=== PATIENT | female | born 1970 | race Caucasian/White ===

== ENCOUNTER 2018-09-30 14:47 | Inpatient (IN) | payer MEDICARE, OTHER ==
[~2018-09-30] VITALS: Ht 157.5 cm; Wt 56.2 kg
[~2018-09-30 14:47] MED LIST: CYCL25CA11 PO; LEVE500T53 PO; PANT40TA25 PO; PRED10 PO; ROSU20TA23 PO; SODI650T PO; VALG450T13 PO; VITA-328 PO; VITAD1000 PO
[2018-09-30 15:00] VITALS: BP 124/43
[2018-09-30] MEDS ORDERED: INSULIN LISPRO 100 UNITS/ML SQ PRN (17:45)
[2018-09-30] MEDS ORDERED: GLUCAGON,HUMAN RECOMBINANT 1 MG VIAL IM PRN (17:45)
[2018-09-30] MEDS ORDERED: DEXTROSE 50%-WATER 25 GM/50 ML SYRINGE IVP PRN (18:00)
[2018-09-30] MEDS: INSULIN LISPRO 100 UNITS/ML SQ PRN ×2 (18:51→21:24)
[2018-09-30] MEDS ORDERED: DOCUSATE SODIUM 100 MG CAPSULE PO PRN (19:30)
[2018-09-30] MEDS ORDERED: SENNA 187 MG TABLET PO PRN (19:30)
[2018-09-30] MEDS ORDERED: LACTULOSE 20 GM/30 ML SOLUTION UDCUP PO PRN (19:30)
[2018-09-30] MEDS ORDERED: OxyCODONE HCL 10 MG IR TABLET PO PRN (19:30)
[2018-09-30 20:06] LABS: GLUCOMETER DEV NAME(LOC) 2WR.1; GLUCOSE,POINT OF CARE 205 MG/DL (70-110)
[2018-09-30] MEDS ORDERED: OMEPRAZOLE 20 MG CAPSULE PO SCH (21:00)
[2018-09-30] MEDS: 0.9% SODIUM CHLORIDE 10 ML SYRINGE IVP SCH ×2 (21:18→23:57)
[2018-09-30] MEDS: INSULIN GLARGINE,HUM.REC.ANLOG 100 UNITS/ML SQ SCH (21:19)
[2018-09-30] MEDS: LevETIRAcetam 500 MG TABLET PO SCH (21:25)
[2018-09-30] MEDS: HEPARIN SODIUM,PORCINE 5,000 UNITS/ML VIAL SQ SCH (21:25)
[2018-09-30] MEDS: CYCLOSPORINE MODIFIED 25 MG PO SCH (21:26)
[2018-09-30] MEDS: TAMSULOSIN HCL 0.4 MG CAPSULE PO SCH (21:26)
[2018-09-30 21:55] LABS: GLUCOMETER DEV NAME(LOC) 2WR.2; GLUCOSE,POINT OF CARE 148 MG/DL (70-110)
[2018-09-30] MEDS: OxyCODONE HCL 5 MG IR TABLET PO PRN (22:46)
[2018-09-30] MEDS: ROSUVASTATIN CALCIUM 20 MG TABLET PO SCH (22:49)
[2018-09-30] MEDS: LATANOPROST 0.005% 2.5 ML OPHTHALMIC SOLUTION OU SCH (23:00)
[2018-09-30] MEDS: BRIMONIDINE TARTRATE 0.2% 5 ML OPHTHALMIC SOLUTION OU SCH (23:00)
[2018-09-30 23:50] VITALS: BP 106/60
[2018-10-01 06:47] LABS: GLUCOMETER DEV NAME(LOC) 2WR.2; GLUCOSE,POINT OF CARE 92 MG/DL (70-110)
[2018-10-01 06:58] LABS: BASOPHILS % (AUTO) 1.1 % (0.0-2.0); EOSINOPHILS % (AUTO) 1.7 % (1.0-6.0); HEMATOCRIT 33.9 % (36-46); HEMOGLOBIN 10.7 g/dL (12.0-16.0); LYMPHOCYTES # (AUTO) 0.8 K/uL (1.0-4.8); LYMPHOCYTES % (AUTO) 6.8 % (22.0-44.0); MEAN CORPUSCULAR HEMOGLOBIN 33.9 pg (26.0-34.0); MEAN CORPUSCULAR HGB CONC 31.5 G/dL (31.0-37.0); MEAN CORPUSCULAR VOLUME 108 fL (80-100); MONOCYTES # (AUTO) 1.3 K/uL (0.1-1.0); MONOCYTES % (AUTO) 11.8 % (2.0-9.0); NEUTROPHILS # (AUTO) 8.7 K/uL (1.8-7.7); NEUTROPHILS % (AUTO) 78.6 % (40.0-70.0); PLATELET COUNT (AUTO) 215 K/uL (150-450); RED BLOOD CELL COUNT(AUTO) 3.15 MIL/uL (4.00-5.20); RED CELL DISTRIBUTION WIDTH 16.6 % (11.5-14.5)
[2018-10-01 07:13] LABS: ALBUMIN 2.2 g/dL (3.4-5.0); BILIRUBIN,TOTAL 0.4 mg/dL (0.1-1.0); CALCIUM, TOTAL 9.5 mg/dL (8.8-10.5); CREATININE 3.95 mg/dL (0.60-1.30); POTASSIUM 4.3 mmol/L (3.5-5.1); TOTAL PROTEIN, SERUM 5.4 g/dL (6.4-8.2)
[2018-10-01 07:30] VITALS: BP 101/70
[2018-10-01] MEDS: PANTOPRAZOLE SODIUM 40 MG DR TABLET PO SCH (08:33)
[2018-10-01] MEDS: CYCLOSPORINE MODIFIED 25 MG PO SCH ×2 (08:33→21:03)
[2018-10-01] MEDS: CHOLECALCIFEROL (VIT D3) 1,000 UNITS TABLET PO SCH (08:33)
[2018-10-01] MEDS: PredniSONE 10 MG TABLET PO SCH (08:33)
[2018-10-01] MEDS: BUMETANIDE 1 MG TABLET PO SCH (08:33)
[2018-10-01] MEDS: 0.9% SODIUM CHLORIDE 10 ML SYRINGE IVP SCH ×3 (08:34→23:04)
[2018-10-01] MEDS: BRIMONIDINE TARTRATE 0.2% 5 ML OPHTHALMIC SOLUTION OU SCH ×2 (08:35→21:11)
[2018-10-01] MEDS: LevETIRAcetam 500 MG TABLET PO SCH ×2 (08:35→21:04)
[2018-10-01] MEDS: VITAMIN B COMP/VIT C/FOLIC ACID CAPSULE PO SCH (08:37)
[2018-10-01] MEDS: HEPARIN SODIUM,PORCINE 5,000 UNITS/ML VIAL SQ SCH ×2 (08:37→21:04)
[2018-10-01] MEDS: OxyCODONE HCL 5 MG IR TABLET PO PRN (08:50)
[2018-10-01 12:26] LABS: GLUCOMETER DEV NAME(LOC) 2WR.1; GLUCOSE,POINT OF CARE 203 MG/DL (70-110)
[2018-10-01] MEDS: INSULIN LISPRO 100 UNITS/ML SQ PRN ×3 (12:43→21:07)
[2018-10-01 15:00] VITALS: BP 129/51
[2018-10-01 18:26] LABS: GLUCOMETER DEV NAME(LOC) 2WR.2; GLUCOSE,POINT OF CARE 166 MG/DL (70-110)
[2018-10-01] MEDS: TAMSULOSIN HCL 0.4 MG CAPSULE PO SCH (21:04)
[2018-10-01] MEDS: ROSUVASTATIN CALCIUM 20 MG TABLET PO SCH ×2 (21:04→21:54)
[2018-10-01] MEDS: INSULIN GLARGINE,HUM.REC.ANLOG 100 UNITS/ML SQ SCH (21:06)
[2018-10-01] MEDS: LATANOPROST 0.005% 2.5 ML OPHTHALMIC SOLUTION OU SCH (21:11)
[2018-10-01 22:15] LABS: GLUCOMETER DEV NAME(LOC) 2WR.2; GLUCOSE,POINT OF CARE 190 MG/DL (70-110)
[2018-10-02] VITALS: BP 121/78
[2018-10-02 06:26] LABS: GLUCOMETER DEV NAME(LOC) 2WR.1; GLUCOSE,POINT OF CARE 112 MG/DL (70-110)
[2018-10-02 07:47] VITALS: BP 137/75
[2018-10-02] MEDS: 0.9% SODIUM CHLORIDE 10 ML SYRINGE IVP SCH ×3 (09:03→22:51)
[2018-10-02] MEDS: PANTOPRAZOLE SODIUM 40 MG DR TABLET PO SCH (09:15)
[2018-10-02] MEDS: LevETIRAcetam 500 MG TABLET PO SCH ×2 (09:15→20:19)
[2018-10-02] MEDS: VITAMIN B COMP/VIT C/FOLIC ACID CAPSULE PO SCH (09:16)
[2018-10-02] MEDS: CHOLECALCIFEROL (VIT D3) 1,000 UNITS TABLET PO SCH (09:16)
[2018-10-02] MEDS: BUMETANIDE 1 MG TABLET PO SCH (09:16)
[2018-10-02] MEDS: PredniSONE 10 MG TABLET PO SCH (09:16)
[2018-10-02] MEDS: HEPARIN SODIUM,PORCINE 5,000 UNITS/ML VIAL SQ SCH ×2 (09:16→20:19)
[2018-10-02] MEDS: CYCLOSPORINE MODIFIED 25 MG PO SCH ×2 (09:17→20:19)
[2018-10-02] MEDS: BRIMONIDINE TARTRATE 0.2% 5 ML OPHTHALMIC SOLUTION OU SCH ×2 (09:17→20:18)
[2018-10-02] MEDS ORDERED: SODIUM CL IRRIG SOLN BOTTLE 250 ML IRRIG ONE (11:59)
[2018-10-02 12:26] LABS: GLUCOMETER DEV NAME(LOC) 2WR.1; GLUCOSE,POINT OF CARE 171 MG/DL (70-110)
[2018-10-02] MEDS: INSULIN LISPRO 100 UNITS/ML SQ PRN ×3 (12:55→20:22)
[2018-10-02 18:00] LABS: GLUCOMETER DEV NAME(LOC) 2WR.2; GLUCOSE,POINT OF CARE 282 MG/DL (70-110)
[2018-10-02] MEDS: LATANOPROST 0.005% 2.5 ML OPHTHALMIC SOLUTION OU SCH (20:18)
[2018-10-02] MEDS: TAMSULOSIN HCL 0.4 MG CAPSULE PO SCH (20:19)
[2018-10-02] MEDS: ROSUVASTATIN CALCIUM 20 MG TABLET PO SCH (20:19)
[2018-10-02] MEDS: INSULIN GLARGINE,HUM.REC.ANLOG 100 UNITS/ML SQ SCH (20:20)
[2018-10-02 21:21] LABS: GLUCOMETER DEV NAME(LOC) 2WR.1; GLUCOSE,POINT OF CARE 267 MG/DL (70-110)
[2018-10-03] VITALS: BP 119/67
[2018-10-03 06:36] LABS: GLUCOMETER DEV NAME(LOC) 2WR.1; GLUCOSE,POINT OF CARE 138 MG/DL (70-110)
[2018-10-03 07:44] VITALS: BP 110/74
[2018-10-03] MEDS: 0.9% SODIUM CHLORIDE 10 ML SYRINGE IVP SCH ×2 (08:00→09:06)
[2018-10-03] MEDS: LevETIRAcetam 500 MG TABLET PO SCH ×2 (09:04→21:55)
[2018-10-03] MEDS: VITAMIN B COMP/VIT C/FOLIC ACID CAPSULE PO SCH (09:04)
[2018-10-03] MEDS: BUMETANIDE 1 MG TABLET PO SCH (09:04)
[2018-10-03] MEDS: CHOLECALCIFEROL (VIT D3) 1,000 UNITS TABLET PO SCH (09:04)
[2018-10-03] MEDS: HEPARIN SODIUM,PORCINE 5,000 UNITS/ML VIAL SQ SCH ×2 (09:04→21:55)
[2018-10-03] MEDS: PANTOPRAZOLE SODIUM 40 MG DR TABLET PO SCH (09:04)
[2018-10-03] MEDS: PredniSONE 10 MG TABLET PO SCH (09:05)
[2018-10-03] MEDS: CYCLOSPORINE MODIFIED 25 MG PO SCH ×2 (09:05→21:54)
[2018-10-03] MEDS: BRIMONIDINE TARTRATE 0.2% 5 ML OPHTHALMIC SOLUTION OU SCH ×2 (09:05→21:55)
[2018-10-03 10:14] LABS: BASOPHILS % (AUTO) 0.5 % (0.0-2.0); EOSINOPHILS % (AUTO) 1.2 % (1.0-6.0); HEMATOCRIT 36.9 % (36-46); HEMOGLOBIN 11.5 g/dL (12.0-16.0); LYMPHOCYTES # (AUTO) 0.8 K/uL (1.0-4.8); LYMPHOCYTES % (AUTO) 7.9 % (22.0-44.0); MEAN CORPUSCULAR HEMOGLOBIN 33.9 pg (26.0-34.0); MEAN CORPUSCULAR HGB CONC 31.2 G/dL (31.0-37.0); MEAN CORPUSCULAR VOLUME 109 fL (80-100); MONOCYTES # (AUTO) 1.3 K/uL (0.1-1.0); NEUTROPHILS # (AUTO) 8.3 K/uL (1.8-7.7); NEUTROPHILS % (AUTO) 78.4 % (40.0-70.0); PLATELET COUNT (AUTO) 220 K/uL (150-450); RED CELL DISTRIBUTION WIDTH 17.1 % (11.5-14.5)
[2018-10-03 10:34] LABS: ALBUMIN 2.6 g/dL (3.4-5.0); BILIRUBIN,TOTAL 0.4 mg/dL (0.1-1.0); CREATININE 4.12 mg/dL (0.60-1.30)
[2018-10-03] MEDS: INSULIN LISPRO 100 UNITS/ML SQ PRN ×3 (12:39→22:00)
[2018-10-03 13:30] LABS: GLUCOMETER DEV NAME(LOC) 2WR.2; GLUCOSE,POINT OF CARE 183 MG/DL (70-110)
[2018-10-03 17:56] LABS: GLUCOMETER DEV NAME(LOC) 2WR.1; GLUCOSE,POINT OF CARE 282 MG/DL (70-110)
[2018-10-03 18:17] LABS: APPEARANCE,URINE CLOUDY (CLEAR); BILIRUBIN,URINE NEGATIVE (NEGATIVE); GLUCOSE, URINE (UA) 250 mg/dL (NEGATIVE); KETONES,URINE NEGATIVE (NEGATIVE); LEUKOCYTE ESTERASE ,URINE MODERATE (NEGATIVE); NITRATE,URINE NEGATIVE (NEGATIVE); OCCULT BLOOD,URINE TRACE (NEGATIVE); PH,URINE 6.5 (5.0-8.0); PROTEIN,URINE SEE CONFIRM (NEGATIVE); UROBILINOGEN,URINE 0.2 mg/dL (<=1.0)
[2018-10-03 18:19] VITALS: BP 115/74
[2018-10-03 18:34] LABS: SULFOSALICYLIC ACID,URINE 4+ (Negative)
[2018-10-03 18:35] LABS: RBC,URINE 0-2 /HPF (0-2); WBC,URINE 26-50 /HPF (0-5)
[2018-10-03 18:37] LABS: BACTERIA,URINE Rare /HPF (None Seen); SQUAMOUS EPITHELIAL CELL,UR Few /LPF (None Seen); YEAST,URINE Few /HPF (None Seen)
[2018-10-03] MEDS: LATANOPROST 0.005% 2.5 ML OPHTHALMIC SOLUTION OU SCH (21:55)
[2018-10-03] MEDS: TAMSULOSIN HCL 0.4 MG CAPSULE PO SCH (21:55)
[2018-10-03] MEDS: ROSUVASTATIN CALCIUM 20 MG TABLET PO SCH (21:55)
[2018-10-03] MEDS: INSULIN GLARGINE,HUM.REC.ANLOG 100 UNITS/ML SQ SCH (21:59)
[2018-10-03 22:21] LABS: GLUCOMETER DEV NAME(LOC) 2WR.2; GLUCOSE,POINT OF CARE 362 MG/DL (70-110)
[2018-10-04 03:30] VITALS: BP 156/59
[2018-10-04 04:30] VITALS: BP 111/73
[2018-10-04 06:41] LABS: GLUCOMETER DEV NAME(LOC) 2WR.1; GLUCOSE,POINT OF CARE 142 MG/DL (70-110)
[2018-10-04 07:55] VITALS: BP 148/60
[2018-10-04] MEDS: BRIMONIDINE TARTRATE 0.2% 5 ML OPHTHALMIC SOLUTION OU SCH ×2 (08:43→21:17)
[2018-10-04] MEDS: ACETAMINOPHEN 325 MG TABLET PO PRN ×2 (08:44→21:23)
[2018-10-04] MEDS: CYCLOSPORINE MODIFIED 25 MG PO SCH ×2 (08:44→21:19)
[2018-10-04] MEDS: BUMETANIDE 1 MG TABLET PO SCH (08:44)
[2018-10-04] MEDS: CHOLECALCIFEROL (VIT D3) 1,000 UNITS TABLET PO SCH (08:44)
[2018-10-04] MEDS: PANTOPRAZOLE SODIUM 40 MG DR TABLET PO SCH (08:45)
[2018-10-04] MEDS: HEPARIN SODIUM,PORCINE 5,000 UNITS/ML VIAL SQ SCH ×2 (08:45→21:18)
[2018-10-04] MEDS: VITAMIN B COMP/VIT C/FOLIC ACID CAPSULE PO SCH (08:45)
[2018-10-04] MEDS: PredniSONE 10 MG TABLET PO SCH (08:45)
[2018-10-04] MEDS: LevETIRAcetam 500 MG TABLET PO SCH ×2 (08:45→21:18)
[2018-10-04] MEDS: OxyCODONE HCL 5 MG IR TABLET PO PRN (11:44)
[2018-10-04 12:55] LABS: GLUCOMETER DEV NAME(LOC) 2WR.2; GLUCOSE,POINT OF CARE 169 MG/DL (70-110)
[2018-10-04] MEDS: INSULIN LISPRO 100 UNITS/ML SQ PRN ×2 (13:01→21:31)
[2018-10-04 15:40] VITALS: BP 128/61
[2018-10-04 18:35] LABS: GLUCOMETER DEV NAME(LOC) 2WR.1; GLUCOSE,POINT OF CARE 218 MG/DL (70-110)
[2018-10-04] MEDS: LATANOPROST 0.005% 2.5 ML OPHTHALMIC SOLUTION OU SCH (21:17)
[2018-10-04] MEDS: ROSUVASTATIN CALCIUM 20 MG TABLET PO SCH (21:19)
[2018-10-04] MEDS: TAMSULOSIN HCL 0.4 MG CAPSULE PO SCH (21:19)
[2018-10-04] MEDS: INSULIN GLARGINE,HUM.REC.ANLOG 100 UNITS/ML SQ SCH (21:31)
[2018-10-04 22:06] LABS: GLUCOMETER DEV NAME(LOC) 2WR.1; GLUCOSE,POINT OF CARE 319 MG/DL (70-110)
[2018-10-05] MEDS ORDERED: INSU200I SQ ×2 (00:12)
[2018-10-05] MEDS ORDERED: INSLAN SQ (00:12)
[2018-10-05 05:00] VITALS: BP 133/100
[2018-10-05 06:31] LABS: GLUCOMETER DEV NAME(LOC) 2WR.2; GLUCOSE,POINT OF CARE 143 MG/DL (70-110)
[2018-10-05 07:27] LABS: CALCIUM, TOTAL 9.6 mg/dL (8.8-10.5); CREATININE 4.18 mg/dL (0.60-1.30); POTASSIUM 4.4 mmol/L (3.5-5.1)
[2018-10-05 08:00] VITALS: BP 98/58
[2018-10-05] MEDS ORDERED: EPOETIN ALFA 10,000 UNITS/ML VIAL SQ SCH (09:00)
[2018-10-05 09:20] VITALS: BP 111/78
[2018-10-05] MEDS: PANTOPRAZOLE SODIUM 40 MG DR TABLET PO SCH (09:22)
[2018-10-05] MEDS: VITAMIN B COMP/VIT C/FOLIC ACID CAPSULE PO SCH (09:22)
[2018-10-05] MEDS: LevETIRAcetam 500 MG TABLET PO SCH ×2 (09:22→20:24)
[2018-10-05] MEDS: HEPARIN SODIUM,PORCINE 5,000 UNITS/ML VIAL SQ SCH ×2 (09:22→20:26)
[2018-10-05] MEDS: CHOLECALCIFEROL (VIT D3) 1,000 UNITS TABLET PO SCH (09:22)
[2018-10-05] MEDS: CYCLOSPORINE MODIFIED 25 MG PO SCH ×2 (09:22→20:23)
[2018-10-05] MEDS: BRIMONIDINE TARTRATE 0.2% 5 ML OPHTHALMIC SOLUTION OU SCH ×2 (09:22→20:25)
[2018-10-05] MEDS: PredniSONE 10 MG TABLET PO SCH (09:23)
[2018-10-05] MEDS: INSULIN LISPRO 100 UNITS/ML SQ PRN ×4 (09:26→20:27)
[2018-10-05] MEDS: BUMETANIDE 1 MG TABLET PO SCH (09:31)
[2018-10-05 12:36] LABS: GLUCOMETER DEV NAME(LOC) 2WR.2; GLUCOSE,POINT OF CARE 153 MG/DL (70-110)
[2018-10-05 16:00] VITALS: BP 105/61
[2018-10-05 16:50] LABS: GLUCOMETER DEV NAME(LOC) 2WR.2; GLUCOSE,POINT OF CARE 222 MG/DL (70-110)
[2018-10-05] MEDS: ROSUVASTATIN CALCIUM 20 MG TABLET PO SCH (20:23)
[2018-10-05] MEDS: TAMSULOSIN HCL 0.4 MG CAPSULE PO SCH (20:23)
[2018-10-05] MEDS: LATANOPROST 0.005% 2.5 ML OPHTHALMIC SOLUTION OU SCH (20:24)
[2018-10-05] MEDS: INSULIN GLARGINE,HUM.REC.ANLOG 100 UNITS/ML SQ SCH (20:27)
[2018-10-05 22:06] LABS: GLUCOMETER DEV NAME(LOC) 2WR.2; GLUCOSE,POINT OF CARE 272 MG/DL (70-110)
[2018-10-06 00:36] VITALS: BP 126/93
[2018-10-06 06:41] LABS: GLUCOMETER DEV NAME(LOC) 2WR.2; GLUCOSE,POINT OF CARE 136 MG/DL (70-110)
[2018-10-06] MEDS: CYCLOSPORINE MODIFIED 25 MG PO SCH ×2 (08:47→21:30)
[2018-10-06] MEDS: CHOLECALCIFEROL (VIT D3) 1,000 UNITS TABLET PO SCH (08:48)
[2018-10-06] MEDS: BRIMONIDINE TARTRATE 0.2% 5 ML OPHTHALMIC SOLUTION OU SCH ×2 (08:48→21:30)
[2018-10-06] MEDS: HEPARIN SODIUM,PORCINE 5,000 UNITS/ML VIAL SQ SCH ×2 (08:48→21:30)
[2018-10-06] MEDS: PredniSONE 10 MG TABLET PO SCH (08:48)
[2018-10-06] MEDS: BUMETANIDE 1 MG TABLET PO SCH (08:48)
[2018-10-06] MEDS: PANTOPRAZOLE SODIUM 40 MG DR TABLET PO SCH (08:48)
[2018-10-06] MEDS: VITAMIN B COMP/VIT C/FOLIC ACID CAPSULE PO SCH (08:48)
[2018-10-06] MEDS: LevETIRAcetam 500 MG TABLET PO SCH ×2 (08:48→21:30)
[2018-10-06 10:08] VITALS: BP 135/71
[2018-10-06] MEDS: INSULIN LISPRO 100 UNITS/ML SQ PRN ×3 (13:28→21:41)
[2018-10-06] MEDS: ACETAMINOPHEN 325 MG TABLET PO PRN (13:29)
[2018-10-06 13:35] LABS: GLUCOMETER DEV NAME(LOC) 2WR.2; GLUCOSE,POINT OF CARE 226 MG/DL (70-110)
[2018-10-06] MEDS: CHLORHEXIDINE GLUCONATE 4% 118 ML TOPICAL LIQUID TP SCH (17:51)
[2018-10-06] MEDS: BACITRACIN 28.4 GM OINTMENT TP SCH (17:52)
[2018-10-06 18:06] LABS: GLUCOMETER DEV NAME(LOC) 2WR.1B; GLUCOSE,POINT OF CARE 246 MG/DL (70-110)
[2018-10-06] MEDS: ROSUVASTATIN CALCIUM 20 MG TABLET PO SCH (21:29)
[2018-10-06] MEDS: TAMSULOSIN HCL 0.4 MG CAPSULE PO SCH (21:30)
[2018-10-06] MEDS: LATANOPROST 0.005% 2.5 ML OPHTHALMIC SOLUTION OU SCH (21:30)
[2018-10-06] MEDS: INSULIN GLARGINE,HUM.REC.ANLOG 100 UNITS/ML SQ SCH (21:40)
[2018-10-06 22:00] VITALS: BP 132/64
[2018-10-06 23:35] LABS: GLUCOMETER DEV NAME(LOC) 2WR.2; GLUCOSE,POINT OF CARE 270 MG/DL (70-110)
[2018-10-06 23:46] VITALS: BP 145/59
[2018-10-07] MEDS: OxyCODONE HCL 5 MG IR TABLET PO PRN (04:03)
[2018-10-07 05:51] LABS: GLUCOMETER DEV NAME(LOC) 2WR.2; GLUCOSE,POINT OF CARE 213 MG/DL (70-110)
[2018-10-07 07:35] VITALS: BP 127/99
[2018-10-07] MEDS: VITAMIN B COMP/VIT C/FOLIC ACID CAPSULE PO SCH (08:19)
[2018-10-07] MEDS: CYCLOSPORINE MODIFIED 25 MG PO SCH ×2 (08:19→21:46)
[2018-10-07] MEDS: CHOLECALCIFEROL (VIT D3) 1,000 UNITS TABLET PO SCH (08:19)
[2018-10-07] MEDS: PANTOPRAZOLE SODIUM 40 MG DR TABLET PO SCH (08:20)
[2018-10-07] MEDS: HEPARIN SODIUM,PORCINE 5,000 UNITS/ML VIAL SQ SCH ×2 (08:20→21:46)
[2018-10-07] MEDS: BRIMONIDINE TARTRATE 0.2% 5 ML OPHTHALMIC SOLUTION OU SCH ×2 (08:20→21:46)
[2018-10-07] MEDS: PredniSONE 10 MG TABLET PO SCH (08:20)
[2018-10-07] MEDS: LevETIRAcetam 500 MG TABLET PO SCH ×2 (08:20→21:46)
[2018-10-07] MEDS: BUMETANIDE 1 MG TABLET PO SCH (08:21)
[2018-10-07] MEDS: INSULIN LISPRO 100 UNITS/ML SQ PRN ×4 (08:38→21:53)
[2018-10-07] MEDS: BACITRACIN 28.4 GM OINTMENT TP SCH (08:49)
[2018-10-07 12:24] LABS: APPEARANCE,URINE CLOUDY (CLEAR); BILIRUBIN,URINE NEGATIVE (NEGATIVE); GLUCOSE, URINE (UA) 500 mg/dL (NEGATIVE); KETONES,URINE NEGATIVE (NEGATIVE); LEUKOCYTE ESTERASE ,URINE LARGE (NEGATIVE); NITRATE,URINE NEGATIVE (NEGATIVE); OCCULT BLOOD,URINE MODERATE (NEGATIVE); PH,URINE 5.5 (5.0-8.0); PROTEIN,URINE SEE CONFIRM (NEGATIVE); UROBILINOGEN,URINE 0.2 mg/dL (<=1.0)
[2018-10-07 12:44] LABS: SULFOSALICYLIC ACID,URINE 3+ (Negative)
[2018-10-07 12:45] LABS: RBC,URINE 0-2 /HPF (0-2); WBC,URINE 51-100 /HPF (0-5)
[2018-10-07 12:46] LABS: BACTERIA,URINE Many /HPF (None Seen); SQUAMOUS EPITHELIAL CELL,UR Few /LPF (None Seen)
[2018-10-07] MEDS: ACETAMINOPHEN 325 MG TABLET PO PRN (14:07)
[2018-10-07 14:35] LABS: GLUCOMETER DEV NAME(LOC) 2WR.2; GLUCOSE,POINT OF CARE 173 MG/DL (70-110)
[2018-10-07 15:05] VITALS: BP 133/90
[2018-10-07 18:10] LABS: GLUCOMETER DEV NAME(LOC) 2WR.2; GLUCOSE,POINT OF CARE 347 MG/DL (70-110)
[2018-10-07] MEDS: TAMSULOSIN HCL 0.4 MG CAPSULE PO SCH (21:46)
[2018-10-07] MEDS: LATANOPROST 0.005% 2.5 ML OPHTHALMIC SOLUTION OU SCH (21:46)
[2018-10-07] MEDS: ROSUVASTATIN CALCIUM 20 MG TABLET PO SCH (21:46)
[2018-10-07] MEDS: INSULIN GLARGINE,HUM.REC.ANLOG 100 UNITS/ML SQ SCH (21:51)
[2018-10-07 23:19] LABS: GLUCOMETER DEV NAME(LOC) 2WR.2; GLUCOSE,POINT OF CARE 251 MG/DL (70-110)
[2018-10-08 00:34] VITALS: BP 113/63
[2018-10-08 01:46] LABS: CYCLOSPORINE A 122 ng/mL (100-400)
[2018-10-08 06:36] LABS: GLUCOMETER DEV NAME(LOC) 2WR.2; GLUCOSE,POINT OF CARE 180 MG/DL (70-110)
[2018-10-08 08:10] VITALS: BP 123/67
[2018-10-08] MEDS: CHLORHEXIDINE GLUCONATE 4% 118 ML TOPICAL LIQUID TP SCH (08:51)
[2018-10-08] MEDS: BUMETANIDE 1 MG TABLET PO SCH (08:51)
[2018-10-08] MEDS: CYCLOSPORINE MODIFIED 25 MG PO SCH ×2 (08:51→21:11)
[2018-10-08] MEDS: ACETAMINOPHEN 325 MG TABLET PO PRN (08:51)
[2018-10-08] MEDS: VITAMIN B COMP/VIT C/FOLIC ACID CAPSULE PO SCH (08:51)
[2018-10-08] MEDS: PANTOPRAZOLE SODIUM 40 MG DR TABLET PO SCH (08:51)
[2018-10-08] MEDS: BACITRACIN 28.4 GM OINTMENT TP SCH (08:52)
[2018-10-08] MEDS: HEPARIN SODIUM,PORCINE 5,000 UNITS/ML VIAL SQ SCH ×2 (08:52→21:12)
[2018-10-08] MEDS: PredniSONE 10 MG TABLET PO SCH (08:52)
[2018-10-08] MEDS: BRIMONIDINE TARTRATE 0.2% 5 ML OPHTHALMIC SOLUTION OU SCH ×2 (08:55→21:12)
[2018-10-08] MEDS: CHOLECALCIFEROL (VIT D3) 1,000 UNITS TABLET PO SCH (08:55)
[2018-10-08] MEDS: LevETIRAcetam 500 MG TABLET PO SCH ×2 (08:55→21:12)
[2018-10-08 09:16] LABS: BASOPHILS % (AUTO) 1.1 % (0.0-2.0); EOSINOPHILS % (AUTO) 1.8 % (1.0-6.0); HEMATOCRIT 38.7 % (36-46); HEMOGLOBIN 12.2 g/dL (12.0-16.0); LYMPHOCYTES # (AUTO) 0.7 K/uL (1.0-4.8); MEAN CORPUSCULAR HEMOGLOBIN 33.4 pg (26.0-34.0); MEAN CORPUSCULAR HGB CONC 31.6 G/dL (31.0-37.0); MEAN CORPUSCULAR VOLUME 106 fL (80-100); MONOCYTES # (AUTO) 1.1 K/uL (0.1-1.0); MONOCYTES % (AUTO) 9.2 % (2.0-9.0); NEUTROPHILS % (AUTO) 81.9 % (40.0-70.0); PLATELET COUNT (AUTO) 195 K/uL (150-450); RED BLOOD CELL COUNT(AUTO) 3.66 MIL/uL (4.00-5.20); RED CELL DISTRIBUTION WIDTH 16.7 % (11.5-14.5)
[2018-10-08 09:36] LABS: ALBUMIN 2.9 g/dL (3.4-5.0); BILIRUBIN,TOTAL 0.3 mg/dL (0.1-1.0); CALCIUM, TOTAL 10.1 mg/dL (8.8-10.5); CREATININE 3.66 mg/dL (0.60-1.30); TOTAL PROTEIN, SERUM 6.4 g/dL (6.4-8.2)
[2018-10-08] MEDS: INSULIN LISPRO 100 UNITS/ML SQ PRN ×3 (10:03→21:20)
[2018-10-08 12:46] LABS: GLUCOMETER DEV NAME(LOC) 2WR.2; GLUCOSE,POINT OF CARE 248 MG/DL (70-110)
[2018-10-08] MEDS: ESCITALOPRAM OXALATE 10 MG TABLET PO SCH (13:15)
[2018-10-08] MEDS: INSULIN LISPRO 100 UNITS/ML SQ SCH ×2 (13:23→16:55)
[2018-10-08 17:00] VITALS: BP 111/51
[2018-10-08 17:35] LABS: GLUCOMETER DEV NAME(LOC) 2WR.2; GLUCOSE,POINT OF CARE 271 MG/DL (70-110)
[2018-10-08] MEDS: LATANOPROST 0.005% 2.5 ML OPHTHALMIC SOLUTION OU SCH (21:12)
[2018-10-08] MEDS: LORazepam 0.5 MG TABLET PO SCH (21:12)
[2018-10-08] MEDS: ROSUVASTATIN CALCIUM 20 MG TABLET PO SCH (21:12)
[2018-10-08] MEDS: TAMSULOSIN HCL 0.4 MG CAPSULE PO SCH (21:12)
[2018-10-08] MEDS: INSULIN GLARGINE,HUM.REC.ANLOG 100 UNITS/ML SQ SCH (21:19)
[2018-10-08 21:45] LABS: GLUCOMETER DEV NAME(LOC) 2WR.2; GLUCOSE,POINT OF CARE 253 MG/DL (70-110)
[2018-10-09 01:00] VITALS: BP 106/70
[2018-10-09 06:45] LABS: GLUCOMETER DEV NAME(LOC) 2WR.2; GLUCOSE,POINT OF CARE 193 MG/DL (70-110)
[2018-10-09] MEDS: INSULIN LISPRO 100 UNITS/ML SQ SCH ×4 (07:00→17:35)
[2018-10-09 07:30] VITALS: BP 97/55
[2018-10-09] MEDS: CYCLOSPORINE MODIFIED 25 MG PO SCH ×2 (09:18→20:52)
[2018-10-09] MEDS: BACITRACIN 28.4 GM OINTMENT TP SCH (09:18)
[2018-10-09] MEDS: PANTOPRAZOLE SODIUM 40 MG DR TABLET PO SCH (09:18)
[2018-10-09] MEDS: VITAMIN B COMP/VIT C/FOLIC ACID CAPSULE PO SCH (09:18)
[2018-10-09] MEDS: ESCITALOPRAM OXALATE 10 MG TABLET PO SCH (09:18)
[2018-10-09] MEDS: CHLORHEXIDINE GLUCONATE 4% 118 ML TOPICAL LIQUID TP SCH (09:19)
[2018-10-09] MEDS: LevETIRAcetam 500 MG TABLET PO SCH ×2 (09:19→20:52)
[2018-10-09] MEDS: PredniSONE 10 MG TABLET PO SCH (09:19)
[2018-10-09] MEDS: BUMETANIDE 1 MG TABLET PO SCH (09:19)
[2018-10-09] MEDS: CHOLECALCIFEROL (VIT D3) 1,000 UNITS TABLET PO SCH (09:19)
[2018-10-09] MEDS: BRIMONIDINE TARTRATE 0.2% 5 ML OPHTHALMIC SOLUTION OU SCH ×2 (09:19→20:52)
[2018-10-09] MEDS: HEPARIN SODIUM,PORCINE 5,000 UNITS/ML VIAL SQ SCH ×2 (09:19→20:53)
[2018-10-09] MEDS ORDERED: ONDANSETRON HCL 4 MG TABLET PO PRN (09:45)
[2018-10-09] MEDS: INSULIN LISPRO 100 UNITS/ML SQ PRN ×3 (12:38→21:14)
[2018-10-09 13:10] LABS: GLUCOMETER DEV NAME(LOC) 2WR.2; GLUCOSE,POINT OF CARE 266 MG/DL (70-110)
[2018-10-09 15:51] VITALS: BP 108/86
[2018-10-09 16:50] LABS: GLUCOMETER DEV NAME(LOC) 2WR.2; GLUCOSE,POINT OF CARE 130 MG/DL (70-110)
[2018-10-09] MEDS: LORazepam 0.5 MG TABLET PO SCH (20:52)
[2018-10-09] MEDS: CIPROFLOXACIN HCL 250 MG TABLET PO SCH (20:52)
[2018-10-09] MEDS: MELATONIN 3 MG TABLET PO PRN (20:52)
[2018-10-09] MEDS: TAMSULOSIN HCL 0.4 MG CAPSULE PO SCH (20:52)
[2018-10-09] MEDS: OxyCODONE HCL 5 MG IR TABLET PO PRN (20:52)
[2018-10-09] MEDS: ROSUVASTATIN CALCIUM 20 MG TABLET PO SCH (20:52)
[2018-10-09] MEDS: LATANOPROST 0.005% 2.5 ML OPHTHALMIC SOLUTION OU SCH (20:53)
[2018-10-09] MEDS: VANCOMYCIN HCL 125 MG/2.5 ML SOLUTION ORAL.SYG PO SCH (21:02)
[2018-10-09] MEDS: INSULIN GLARGINE,HUM.REC.ANLOG 100 UNITS/ML SQ SCH ×2 (21:02→21:14)
[2018-10-09 21:21] LABS: GLUCOMETER DEV NAME(LOC) 2WR.2; GLUCOSE,POINT OF CARE 241 MG/DL (70-110)
[2018-10-10] VITALS: BP 98/56
[2018-10-10] MEDS: OxyCODONE HCL 5 MG IR TABLET PO PRN (03:41)
[2018-10-10 05:56] LABS: GLUCOMETER DEV NAME(LOC) 2WR.1B; GLUCOSE,POINT OF CARE 122 MG/DL (70-110)
[2018-10-10 09:31] LABS: BASOPHILS % (AUTO) 0.6 % (0.0-2.0); EOSINOPHILS % (AUTO) 0.9 % (1.0-6.0); HEMATOCRIT 38.5 % (36-46); HEMOGLOBIN 12.4 g/dL (12.0-16.0); LYMPHOCYTES # (AUTO) 0.7 K/uL (1.0-4.8); LYMPHOCYTES % (AUTO) 7.7 % (22.0-44.0); MEAN CORPUSCULAR HGB CONC 32.2 G/dL (31.0-37.0); MEAN CORPUSCULAR VOLUME 106 fL (80-100); NEUTROPHILS # (AUTO) 7.8 K/uL (1.8-7.7); NEUTROPHILS % (AUTO) 80.8 % (40.0-70.0); PLATELET COUNT (AUTO) 188 K/uL (150-450); RED BLOOD CELL COUNT(AUTO) 3.64 MIL/uL (4.00-5.20); RED CELL DISTRIBUTION WIDTH 17.2 % (11.5-14.5)
[2018-10-10 09:34] VITALS: BP 138/93
[2018-10-10] MEDS: ESCITALOPRAM OXALATE 10 MG TABLET PO SCH (09:38)
[2018-10-10] MEDS: CYCLOSPORINE MODIFIED 25 MG PO SCH ×2 (09:38→22:00)
[2018-10-10] MEDS: VITAMIN B COMP/VIT C/FOLIC ACID CAPSULE PO SCH (09:38)
[2018-10-10] MEDS: LevETIRAcetam 500 MG TABLET PO SCH ×2 (09:38→22:00)
[2018-10-10] MEDS: PANTOPRAZOLE SODIUM 40 MG DR TABLET PO SCH (09:38)
[2018-10-10] MEDS: BRIMONIDINE TARTRATE 0.2% 5 ML OPHTHALMIC SOLUTION OU SCH ×2 (09:39→21:57)
[2018-10-10] MEDS: HEPARIN SODIUM,PORCINE 5,000 UNITS/ML VIAL SQ SCH ×2 (09:39→21:59)
[2018-10-10] MEDS: CHLORHEXIDINE GLUCONATE 4% 118 ML TOPICAL LIQUID TP SCH (09:39)
[2018-10-10] MEDS: PredniSONE 10 MG TABLET PO SCH (09:39)
[2018-10-10] MEDS: BACITRACIN 28.4 GM OINTMENT TP SCH (09:39)
[2018-10-10] MEDS: CIPROFLOXACIN HCL 250 MG TABLET PO SCH ×2 (09:39→22:00)
[2018-10-10] MEDS: BUMETANIDE 1 MG TABLET PO SCH (09:40)
[2018-10-10] MEDS: CHOLECALCIFEROL (VIT D3) 1,000 UNITS TABLET PO SCH (09:42)
[2018-10-10 09:44] LABS: ALBUMIN 2.8 g/dL (3.4-5.0); BILIRUBIN,TOTAL 0.4 mg/dL (0.1-1.0); CALCIUM, TOTAL 10.1 mg/dL (8.8-10.5); CREATININE 3.7 mg/dL (0.60-1.30); MAGNESIUM 2.2 mg/dL (1.80-2.40); PHOSPHORUS 4.4 mg/dL (2.5-4.9); POTASSIUM 4.1 mmol/L (3.5-5.1); TOTAL PROTEIN, SERUM 6.4 g/dL (6.4-8.2)
[2018-10-10] MEDS: INSULIN LISPRO 100 UNITS/ML SQ SCH ×3 (10:07→18:06)
[2018-10-10] MEDS: VANCOMYCIN HCL 125 MG/2.5 ML SOLUTION ORAL.SYG PO SCH ×2 (10:20→21:57)
[2018-10-10 10:40] VITALS: BP 114/73
[2018-10-10 12:10] LABS: GLUCOMETER DEV NAME(LOC) 2WR.1B; GLUCOSE,POINT OF CARE 178 MG/DL (70-110)
[2018-10-10] MEDS: ACETAMINOPHEN 325 MG TABLET PO PRN (13:30)
[2018-10-10] MEDS ORDERED: HYDROCODONE/ACETAMINOPHEN 10-325 MG TABLET PO PRN (15:45)
[2018-10-10 16:24] VITALS: BP 143/58
[2018-10-10] MEDS: HYDROCODONE/ACETAMINOPHEN 5-325 MG TABLET PO PRN (16:24)
[2018-10-10] MEDS: INSULIN LISPRO 100 UNITS/ML SQ PRN ×2 (18:07→21:59)
[2018-10-10 18:50] LABS: GLUCOMETER DEV NAME(LOC) 2WR.1B; GLUCOSE,POINT OF CARE 251 MG/DL (70-110)
[2018-10-10] MEDS: LATANOPROST 0.005% 2.5 ML OPHTHALMIC SOLUTION OU SCH (21:57)
[2018-10-10] MEDS: INSULIN GLARGINE,HUM.REC.ANLOG 100 UNITS/ML SQ SCH (21:59)
[2018-10-10] MEDS: ROSUVASTATIN CALCIUM 20 MG TABLET PO SCH (22:00)
[2018-10-10] MEDS: LORazepam 0.5 MG TABLET PO SCH (22:00)
[2018-10-10] MEDS: TAMSULOSIN HCL 0.4 MG CAPSULE PO SCH (22:00)
[2018-10-10 22:30] LABS: GLUCOMETER DEV NAME(LOC) 2WR.1B; GLUCOSE,POINT OF CARE 234 MG/DL (70-110)
[2018-10-11] VITALS: BP 97/47
[2018-10-11] MEDS: HYDROCODONE/ACETAMINOPHEN 5-325 MG TABLET PO PRN (01:50)
[2018-10-11 06:31] LABS: GLUCOMETER DEV NAME(LOC) 2WR.2; GLUCOSE,POINT OF CARE 137 MG/DL (70-110)
[2018-10-11] MEDS: INSULIN LISPRO 100 UNITS/ML SQ SCH ×3 (07:00→17:28)
[2018-10-11 08:00] VITALS: BP 101/43
[2018-10-11] MEDS: CIPROFLOXACIN HCL 250 MG TABLET PO SCH ×2 (10:03→21:10)
[2018-10-11] MEDS: HEPARIN SODIUM,PORCINE 5,000 UNITS/ML VIAL SQ SCH ×2 (10:03→21:10)
[2018-10-11] MEDS: CYCLOSPORINE MODIFIED 25 MG PO SCH ×2 (10:03→21:10)
[2018-10-11] MEDS: VITAMIN B COMP/VIT C/FOLIC ACID CAPSULE PO SCH (10:03)
[2018-10-11] MEDS: PANTOPRAZOLE SODIUM 40 MG DR TABLET PO SCH (10:04)
[2018-10-11] MEDS: LevETIRAcetam 500 MG TABLET PO SCH ×2 (10:04→21:10)
[2018-10-11] MEDS: ESCITALOPRAM OXALATE 10 MG TABLET PO SCH (10:04)
[2018-10-11] MEDS: PredniSONE 10 MG TABLET PO SCH (10:05)
[2018-10-11] MEDS: BUMETANIDE 1 MG TABLET PO SCH (10:08)
[2018-10-11] MEDS: CHOLECALCIFEROL (VIT D3) 1,000 UNITS TABLET PO SCH (10:09)
[2018-10-11] MEDS: BACITRACIN 28.4 GM OINTMENT TP SCH (10:09)
[2018-10-11] MEDS: BRIMONIDINE TARTRATE 0.2% 5 ML OPHTHALMIC SOLUTION OU SCH ×2 (10:10→21:10)
[2018-10-11] MEDS: VANCOMYCIN HCL 125 MG/2.5 ML SOLUTION ORAL.SYG PO SCH ×2 (10:11→21:10)
[2018-10-11] MEDS: CHLORHEXIDINE GLUCONATE 4% 118 ML TOPICAL LIQUID TP SCH (10:16)
[2018-10-11] MEDS: INSULIN LISPRO 100 UNITS/ML SQ PRN ×3 (12:42→21:25)
[2018-10-11 12:46] LABS: GLUCOMETER DEV NAME(LOC) 2WR.2; GLUCOSE,POINT OF CARE 274 MG/DL (70-110)
[2018-10-11 15:52] VITALS: BP 136/103
[2018-10-11 17:41] LABS: GLUCOMETER DEV NAME(LOC) 2WR.2; GLUCOSE,POINT OF CARE 176 MG/DL (70-110)
[2018-10-11] MEDS: ROSUVASTATIN CALCIUM 20 MG TABLET PO SCH (21:10)
[2018-10-11] MEDS: LORazepam 0.5 MG TABLET PO SCH (21:10)
[2018-10-11] MEDS: TAMSULOSIN HCL 0.4 MG CAPSULE PO SCH (21:10)
[2018-10-11] MEDS: LATANOPROST 0.005% 2.5 ML OPHTHALMIC SOLUTION OU SCH (21:10)
[2018-10-11] MEDS: INSULIN GLARGINE,HUM.REC.ANLOG 100 UNITS/ML SQ SCH (21:25)
[2018-10-12 00:36] LABS: GLUCOMETER DEV NAME(LOC) 2WR.1B; GLUCOSE,POINT OF CARE 240 MG/DL (70-110)
[2018-10-12 01:38] VITALS: BP 147/61
[2018-10-12 06:11] LABS: GLUCOMETER DEV NAME(LOC) 2WR.2; GLUCOSE,POINT OF CARE 156 MG/DL (70-110)
[2018-10-12] MEDS: INSULIN LISPRO 100 UNITS/ML SQ SCH ×3 (07:00→17:42)
[2018-10-12] MEDS: VANCOMYCIN HCL 125 MG/2.5 ML SOLUTION ORAL.SYG PO SCH ×2 (09:53→20:44)
[2018-10-12] MEDS: BRIMONIDINE TARTRATE 0.2% 5 ML OPHTHALMIC SOLUTION OU SCH ×2 (09:53→20:42)
[2018-10-12] MEDS: CIPROFLOXACIN HCL 250 MG TABLET PO SCH ×2 (09:54→20:43)
[2018-10-12] MEDS: PredniSONE 10 MG TABLET PO SCH (09:54)
[2018-10-12] MEDS: CYCLOSPORINE MODIFIED 25 MG PO SCH ×2 (09:54→20:42)
[2018-10-12] MEDS: HEPARIN SODIUM,PORCINE 5,000 UNITS/ML VIAL SQ SCH ×2 (09:54→20:44)
[2018-10-12] MEDS: CHOLECALCIFEROL (VIT D3) 1,000 UNITS TABLET PO SCH (09:54)
[2018-10-12] MEDS: BUMETANIDE 1 MG TABLET PO SCH (09:55)
[2018-10-12] MEDS: ESCITALOPRAM OXALATE 10 MG TABLET PO SCH (09:55)
[2018-10-12] MEDS: VITAMIN B COMP/VIT C/FOLIC ACID CAPSULE PO SCH (09:55)
[2018-10-12] MEDS: LevETIRAcetam 500 MG TABLET PO SCH ×2 (09:56→20:43)
[2018-10-12] MEDS: PANTOPRAZOLE SODIUM 40 MG DR TABLET PO SCH (09:56)
[2018-10-12] MEDS: CHLORHEXIDINE GLUCONATE 4% 118 ML TOPICAL LIQUID TP SCH (09:57)
[2018-10-12] MEDS: BACITRACIN 28.4 GM OINTMENT TP SCH (09:57)
[2018-10-12] MEDS: ACETAMINOPHEN 325 MG TABLET PO PRN (09:57)
[2018-10-12 10:00] VITALS: BP 145/65
[2018-10-12] MEDS: HYDROCODONE/ACETAMINOPHEN 5-325 MG TABLET PO PRN (11:41)
[2018-10-12] MEDS: INSULIN LISPRO 100 UNITS/ML SQ PRN ×3 (13:16→21:03)
[2018-10-12 15:37] VITALS: BP 98/84
[2018-10-12] MEDS ORDERED: CHLORHEXIDINE GLUCONATE 4% 118 ML TOPICAL LIQUID TP SCH (17:00)
[2018-10-12 20:30] VITALS: BP 122/67
[2018-10-12] MEDS: LATANOPROST 0.005% 2.5 ML OPHTHALMIC SOLUTION OU SCH (20:43)
[2018-10-12] MEDS: ROSUVASTATIN CALCIUM 20 MG TABLET PO SCH (20:43)
[2018-10-12] MEDS: MELATONIN 3 MG TABLET PO PRN (20:43)
[2018-10-12] MEDS: TAMSULOSIN HCL 0.4 MG CAPSULE PO SCH (20:43)
[2018-10-12] MEDS: LORazepam 0.5 MG TABLET PO SCH (20:46)
[2018-10-12] MEDS: INSULIN GLARGINE,HUM.REC.ANLOG 100 UNITS/ML SQ SCH (21:02)
[2018-10-12 23:35] VITALS: BP 119/53
[2018-10-13 06:56] LABS: BASOPHILS % (AUTO) 0.4 % (0.0-2.0); EOSINOPHILS % (AUTO) 1.4 % (1.0-6.0); HEMOGLOBIN 12.5 g/dL (12.0-16.0); LYMPHOCYTES # (AUTO) 0.8 K/uL (1.0-4.8); LYMPHOCYTES % (AUTO) 8.4 % (22.0-44.0); MEAN CORPUSCULAR HEMOGLOBIN 33.2 pg (26.0-34.0); MEAN CORPUSCULAR HGB CONC 32.1 G/dL (31.0-37.0); MEAN CORPUSCULAR VOLUME 104 fL (80-100); MONOCYTES % (AUTO) 10.1 % (2.0-9.0); NEUTROPHILS % (AUTO) 79.7 % (40.0-70.0); PLATELET COUNT (AUTO) 194 K/uL (150-450); RED BLOOD CELL COUNT(AUTO) 3.76 MIL/uL (4.00-5.20); RED CELL DISTRIBUTION WIDTH 17.1 % (11.5-14.5)
[2018-10-13 07:22] LABS: CALCIUM, TOTAL 9.9 mg/dL (8.8-10.5); CREATININE 3.61 mg/dL (0.60-1.30); MAGNESIUM 2.2 mg/dL (1.80-2.40); PHOSPHORUS 4.3 mg/dL (2.5-4.9); POTASSIUM 3.7 mmol/L (3.5-5.1)
[2018-10-13 08:53] VITALS: BP 154/67
[2018-10-13] MEDS: HYDROCODONE/ACETAMINOPHEN 5-325 MG TABLET PO PRN ×2 (08:53→12:31)
[2018-10-13] MEDS: CHOLECALCIFEROL (VIT D3) 1,000 UNITS TABLET PO SCH (09:39)
[2018-10-13] MEDS: CYCLOSPORINE MODIFIED 25 MG PO SCH (09:39)
[2018-10-13] MEDS: ESCITALOPRAM OXALATE 10 MG TABLET PO SCH (09:39)
[2018-10-13] MEDS: PANTOPRAZOLE SODIUM 40 MG DR TABLET PO SCH (09:40)
[2018-10-13] MEDS: PredniSONE 10 MG TABLET PO SCH (09:40)
[2018-10-13] MEDS: VITAMIN B COMP/VIT C/FOLIC ACID CAPSULE PO SCH (09:40)
[2018-10-13] MEDS: CHLORHEXIDINE GLUCONATE 4% 118 ML TOPICAL LIQUID TP SCH (09:41)
[2018-10-13] MEDS: LevETIRAcetam 500 MG TABLET PO SCH ×2 (09:41→21:46)
[2018-10-13] MEDS: BACITRACIN 28.4 GM OINTMENT TP SCH (09:41)
[2018-10-13] MEDS: CIPROFLOXACIN HCL 250 MG TABLET PO SCH ×2 (09:41→21:46)
[2018-10-13] MEDS: HEPARIN SODIUM,PORCINE 5,000 UNITS/ML VIAL SQ SCH ×2 (09:41→21:47)
[2018-10-13] MEDS: BUMETANIDE 1 MG TABLET PO SCH (09:41)
[2018-10-13] MEDS: BRIMONIDINE TARTRATE 0.2% 5 ML OPHTHALMIC SOLUTION OU SCH ×2 (09:42→21:47)
[2018-10-13] MEDS: VANCOMYCIN HCL 125 MG/2.5 ML SOLUTION ORAL.SYG PO SCH ×2 (09:45→21:46)
[2018-10-13] MEDS: INSULIN LISPRO 100 UNITS/ML SQ SCH ×3 (09:51→17:37)
[2018-10-13] MEDS: INSULIN LISPRO 100 UNITS/ML SQ PRN ×3 (09:52→22:01)
[2018-10-13 13:23] LABS: GLUCOMETER DEV NAME(LOC) 2WR.1B; GLUCOSE,POINT OF CARE 184 MG/DL (70-110)
[2018-10-13 13:23] LABS: GLUCOMETER DEV NAME(LOC) 2WR.1B; GLUCOSE,POINT OF CARE 200 MG/DL (70-110)
[2018-10-13 13:23] LABS: GLUCOMETER DEV NAME(LOC) 2WR.1B; GLUCOSE,POINT OF CARE 184 MG/DL (70-110)
[2018-10-13 13:23] LABS: GLUCOMETER DEV NAME(LOC) 2WR.2; GLUCOSE,POINT OF CARE 250 MG/DL (70-110)
[2018-10-13 13:24] LABS: GLUCOMETER DEV NAME(LOC) 2WR.1B; GLUCOSE,POINT OF CARE 143 MG/DL (70-110)
[2018-10-13 17:00] VITALS: BP 136/62
[2018-10-13] MEDS: LORazepam 0.5 MG TABLET PO SCH (21:46)
[2018-10-13] MEDS: ROSUVASTATIN CALCIUM 10 MG TABLET PO SCH (21:46)
[2018-10-13] MEDS: TAMSULOSIN HCL 0.4 MG CAPSULE PO SCH (21:46)
[2018-10-13] MEDS: CycloSPORINE,MODIFIED 100 MG CAPSULE PO SCH (21:46)
[2018-10-13] MEDS: MELATONIN 3 MG TABLET PO PRN (21:46)
[2018-10-13] MEDS: LATANOPROST 0.005% 2.5 ML OPHTHALMIC SOLUTION OU SCH (21:47)
[2018-10-13] MEDS: INSULIN GLARGINE,HUM.REC.ANLOG 100 UNITS/ML SQ SCH (21:55)
[2018-10-13 22:06] LABS: GLUCOMETER DEV NAME(LOC) 2WR.2; GLUCOSE,POINT OF CARE 326 MG/DL (70-110)
[2018-10-14 00:20] VITALS: BP 152/78
[2018-10-14 00:23] VITALS: BP 120/70
[2018-10-14 01:24] LABS: CYCLOSPORINE A 119 ng/mL (100-400)
[2018-10-14 04:06] LABS: GLUCOMETER DEV NAME(LOC) 2WR.1B; GLUCOSE,POINT OF CARE 232 MG/DL (70-110)
[2018-10-14 06:06] LABS: GLUCOMETER DEV NAME(LOC) 2WR.2; GLUCOSE,POINT OF CARE 90 MG/DL (70-110)
[2018-10-14] MEDS: INSULIN LISPRO 100 UNITS/ML SQ SCH ×3 (07:00→17:37)
[2018-10-14 07:03] LABS: CALCIUM, TOTAL 9.7 mg/dL (8.8-10.5); CREATININE 3.64 mg/dL (0.60-1.30); MAGNESIUM 2.3 mg/dL (1.80-2.40); PHOSPHORUS 4.7 mg/dL (2.5-4.9); POTASSIUM 3.9 mmol/L (3.5-5.1)
[2018-10-14 07:17] VITALS: BP 121/49
[2018-10-14] MEDS: VANCOMYCIN HCL 125 MG/2.5 ML SOLUTION ORAL.SYG PO SCH ×2 (08:49→21:37)
[2018-10-14] MEDS: BUMETANIDE 1 MG TABLET PO SCH (08:49)
[2018-10-14] MEDS: CHOLECALCIFEROL (VIT D3) 1,000 UNITS TABLET PO SCH (08:49)
[2018-10-14] MEDS: BACITRACIN 28.4 GM OINTMENT TP SCH (08:49)
[2018-10-14] MEDS: VITAMIN B COMP/VIT C/FOLIC ACID CAPSULE PO SCH (08:49)
[2018-10-14] MEDS: LevETIRAcetam 500 MG TABLET PO SCH ×2 (08:49→21:36)
[2018-10-14] MEDS: PANTOPRAZOLE SODIUM 40 MG DR TABLET PO SCH (08:49)
[2018-10-14] MEDS: PredniSONE 5 MG TABLET PO SCH (08:50)
[2018-10-14] MEDS: CycloSPORINE,MODIFIED 100 MG CAPSULE PO SCH ×2 (08:50→21:35)
[2018-10-14] MEDS: ESCITALOPRAM OXALATE 10 MG TABLET PO SCH ×2 (08:50→10:44)
[2018-10-14] MEDS: HEPARIN SODIUM,PORCINE 5,000 UNITS/ML VIAL SQ SCH ×2 (08:50→21:35)
[2018-10-14] MEDS: CIPROFLOXACIN HCL 250 MG TABLET PO SCH ×2 (08:50→21:36)
[2018-10-14] MEDS: BRIMONIDINE TARTRATE 0.2% 5 ML OPHTHALMIC SOLUTION OU SCH ×2 (08:51→21:35)
[2018-10-14] MEDS: CHLORHEXIDINE GLUCONATE 4% 118 ML TOPICAL LIQUID TP SCH (08:57)
[2018-10-14] MEDS: HYDROCODONE/ACETAMINOPHEN 5-325 MG TABLET PO PRN (09:17)
[2018-10-14 12:06] LABS: GLUCOMETER DEV NAME(LOC) 2WR.2; GLUCOSE,POINT OF CARE 239 MG/DL (70-110)
[2018-10-14] MEDS: INSULIN LISPRO 100 UNITS/ML SQ PRN ×3 (12:17→21:45)
[2018-10-14 15:30] VITALS: BP 171/77
[2018-10-14 16:02] VITALS: BP 159/87
[2018-10-14 19:37] LABS: GLUCOMETER DEV NAME(LOC) 2WR.1B; GLUCOSE,POINT OF CARE 221 MG/DL (70-110)
[2018-10-14 21:34] VITALS: BP 161/76
[2018-10-14] MEDS: TAMSULOSIN HCL 0.4 MG CAPSULE PO SCH (21:36)
[2018-10-14] MEDS: LORazepam 0.5 MG TABLET PO SCH (21:36)
[2018-10-14] MEDS: ROSUVASTATIN CALCIUM 10 MG TABLET PO SCH (21:36)
[2018-10-14] MEDS: LATANOPROST 0.005% 2.5 ML OPHTHALMIC SOLUTION OU SCH (21:36)
[2018-10-14] MEDS: MELATONIN 3 MG TABLET PO PRN (21:36)
[2018-10-14 21:57] LABS: GLUCOMETER DEV NAME(LOC) 2WR.2; GLUCOSE,POINT OF CARE 241 MG/DL (70-110)
[2018-10-14] MEDS: INSULIN GLARGINE,HUM.REC.ANLOG 100 UNITS/ML SQ SCH (22:46)
[2018-10-15 00:29] VITALS: BP 103/80
[2018-10-15 06:16] LABS: GLUCOMETER DEV NAME(LOC) 2WR.1B; GLUCOSE,POINT OF CARE 133 MG/DL (70-110)
[2018-10-15] MEDS: HYDROCODONE/ACETAMINOPHEN 5-325 MG TABLET PO PRN ×2 (06:35→18:15)
[2018-10-15] MEDS: INSULIN LISPRO 100 UNITS/ML SQ SCH ×3 (07:00→18:16)
[2018-10-15] MEDS: BRIMONIDINE TARTRATE 0.2% 5 ML OPHTHALMIC SOLUTION OU SCH ×2 (07:24→21:45)
[2018-10-15] MEDS: CHOLECALCIFEROL (VIT D3) 1,000 UNITS TABLET PO SCH (07:24)
[2018-10-15] MEDS: ESCITALOPRAM OXALATE 10 MG TABLET PO SCH (07:24)
[2018-10-15] MEDS: VANCOMYCIN HCL 125 MG/2.5 ML SOLUTION ORAL.SYG PO SCH ×2 (07:24→21:45)
[2018-10-15] MEDS: HEPARIN SODIUM,PORCINE 5,000 UNITS/ML VIAL SQ SCH ×2 (07:24→21:45)
[2018-10-15] MEDS: PredniSONE 5 MG TABLET PO SCH (07:24)
[2018-10-15] MEDS: CycloSPORINE,MODIFIED 100 MG CAPSULE PO SCH ×2 (07:24→21:45)
[2018-10-15] MEDS: CIPROFLOXACIN HCL 250 MG TABLET PO SCH ×2 (07:24→21:45)
[2018-10-15] MEDS: LevETIRAcetam 500 MG TABLET PO SCH ×2 (07:25→21:45)
[2018-10-15] MEDS: BUMETANIDE 1 MG TABLET PO SCH (07:25)
[2018-10-15] MEDS: VITAMIN B COMP/VIT C/FOLIC ACID CAPSULE PO SCH (07:25)
[2018-10-15] MEDS: PANTOPRAZOLE SODIUM 40 MG DR TABLET PO SCH (07:25)
[2018-10-15 07:35] VITALS: BP 116/45
[2018-10-15] MEDS: CHLORHEXIDINE GLUCONATE 4% 118 ML TOPICAL LIQUID TP SCH (13:00)
[2018-10-15] MEDS: BACITRACIN 28.4 GM OINTMENT TP SCH (13:00)
[2018-10-15 13:21] LABS: GLUCOMETER DEV NAME(LOC) 2WR.2; GLUCOSE,POINT OF CARE 258 MG/DL (70-110)
[2018-10-15] MEDS: INSULIN LISPRO 100 UNITS/ML SQ PRN ×3 (13:29→21:51)
[2018-10-15 14:02] LABS: CALCIUM, TOTAL 9.4 mg/dL (8.8-10.5); CREATININE 3.78 mg/dL (0.60-1.30); POTASSIUM 4.5 mmol/L (3.5-5.1)
[2018-10-15 15:35] VITALS: BP 116/74
[2018-10-15 17:20] LABS: GLUCOMETER DEV NAME(LOC) 2WR.1B; GLUCOSE,POINT OF CARE 234 MG/DL (70-110)
[2018-10-15] MEDS: MELATONIN 3 MG TABLET PO PRN (21:45)
[2018-10-15] MEDS: LORazepam 0.5 MG TABLET PO SCH (21:45)
[2018-10-15] MEDS: ROSUVASTATIN CALCIUM 10 MG TABLET PO SCH (21:45)
[2018-10-15] MEDS: LATANOPROST 0.005% 2.5 ML OPHTHALMIC SOLUTION OU SCH (21:45)
[2018-10-15] MEDS: TAMSULOSIN HCL 0.4 MG CAPSULE PO SCH (21:45)
[2018-10-15] MEDS: INSULIN GLARGINE,HUM.REC.ANLOG 100 UNITS/ML SQ SCH (21:50)
[2018-10-15 22:22] LABS: GLUCOMETER DEV NAME(LOC) 2WR.2; GLUCOSE,POINT OF CARE 224 MG/DL (70-110)
[2018-10-16] VITALS: BP 102/70
[2018-10-16] MEDS ORDERED: CYCL100C21 PO (00:19)
[2018-10-16] MEDS ORDERED: PRED5 PO (00:19)
[2018-10-16] MEDS ORDERED: INSU100V SQ ×2 (00:19)
[2018-10-16] MEDS ORDERED: BRIM15DR8 OU (00:19)
[2018-10-16] MEDS ORDERED: VANCOPO PO (00:19)
[2018-10-16] MEDS ORDERED: HYDR-4061 PO (00:19)
[2018-10-16] MEDS ORDERED: TAMS-1 PO (00:19)
[2018-10-16] MEDS ORDERED: LORA0.5T2 PO (00:19)
[2018-10-16] MEDS ORDERED: XALA2.5OS OU (00:19)
[2018-10-16] MEDS ORDERED: CIP250 PO (00:19)
[2018-10-16] MEDS ORDERED: BACI3.5O22 TP (00:19)
[2018-10-16] MEDS ORDERED: ROSU10TA22 PO (00:19)
[2018-10-16] MEDS ORDERED: ESCI10TA PO (00:27)
[2018-10-16] MEDS ORDERED: PANT40TA25 PO (00:27)
[2018-10-16] MEDS ORDERED: NEPHROCAP PO (00:27)
[2018-10-16] MEDS ORDERED: BUME1TAB34 PO (00:27)
[2018-10-16 06:11] LABS: GLUCOMETER DEV NAME(LOC) 2WR.2; GLUCOSE,POINT OF CARE 136 MG/DL (70-110)
[2018-10-16] MEDS: HYDROCODONE/ACETAMINOPHEN 5-325 MG TABLET PO PRN ×2 (06:47→12:56)
[2018-10-16 07:47] VITALS: BP 93/64
[2018-10-16] MEDS: BUMETANIDE 1 MG TABLET PO SCH (09:00)
[2018-10-16] MEDS: CHOLECALCIFEROL (VIT D3) 1,000 UNITS TABLET PO SCH (09:52)
[2018-10-16] MEDS: ESCITALOPRAM OXALATE 10 MG TABLET PO SCH (09:52)
[2018-10-16] MEDS: CIPROFLOXACIN HCL 250 MG TABLET PO SCH ×2 (09:52→20:45)
[2018-10-16] MEDS: PANTOPRAZOLE SODIUM 40 MG DR TABLET PO SCH (09:52)
[2018-10-16] MEDS: CycloSPORINE,MODIFIED 100 MG CAPSULE PO SCH ×2 (09:52→20:45)
[2018-10-16] MEDS: LevETIRAcetam 500 MG TABLET PO SCH ×2 (09:53→20:45)
[2018-10-16] MEDS: HEPARIN SODIUM,PORCINE 5,000 UNITS/ML VIAL SQ SCH ×2 (09:53→20:46)
[2018-10-16] MEDS: PredniSONE 5 MG TABLET PO SCH (09:53)
[2018-10-16] MEDS: VITAMIN B COMP/VIT C/FOLIC ACID CAPSULE PO SCH (09:53)
[2018-10-16] MEDS: VANCOMYCIN HCL 125 MG/2.5 ML SOLUTION ORAL.SYG PO SCH ×2 (09:54→20:46)
[2018-10-16] MEDS: BACITRACIN 28.4 GM OINTMENT TP SCH (09:54)
[2018-10-16] MEDS: BRIMONIDINE TARTRATE 0.2% 5 ML OPHTHALMIC SOLUTION OU SCH ×2 (09:56→20:45)
[2018-10-16] MEDS: INSULIN LISPRO 100 UNITS/ML SQ SCH ×3 (10:03→16:30)
[2018-10-16] MEDS: CHLORHEXIDINE GLUCONATE 4% 118 ML TOPICAL LIQUID TP SCH (10:05)
[2018-10-16 13:20] LABS: GLUCOMETER DEV NAME(LOC) 2WR.2; GLUCOSE,POINT OF CARE 96 MG/DL (70-110)
[2018-10-16 13:56] VITALS: BP 85/50
[2018-10-16 15:25] VITALS: BP 120/49
[2018-10-16 17:22] LABS: GLUCOMETER DEV NAME(LOC) 2WR.1B; GLUCOSE,POINT OF CARE 187 MG/DL (70-110)
[2018-10-16] MEDS: LORazepam 0.5 MG TABLET PO SCH (20:45)
[2018-10-16] MEDS: LATANOPROST 0.005% 2.5 ML OPHTHALMIC SOLUTION OU SCH (20:45)
[2018-10-16] MEDS: TAMSULOSIN HCL 0.4 MG CAPSULE PO SCH (20:45)
[2018-10-16] MEDS: ROSUVASTATIN CALCIUM 10 MG TABLET PO SCH (20:47)
[2018-10-16] MEDS: INSULIN GLARGINE,HUM.REC.ANLOG 100 UNITS/ML SQ SCH (20:56)
[2018-10-16] MEDS: INSULIN LISPRO 100 UNITS/ML SQ PRN (20:58)
[2018-10-16 22:25] LABS: GLUCOMETER DEV NAME(LOC) 2WR.1B; GLUCOSE,POINT OF CARE 189 MG/DL (70-110)
[2018-10-16 23:56] VITALS: BP 130/66
[2018-10-17] MEDS: HYDROCODONE/ACETAMINOPHEN 5-325 MG TABLET PO PRN ×2 (02:22→14:29)
[2018-10-17 05:56] LABS: GLUCOMETER DEV NAME(LOC) 2WR.2; GLUCOSE,POINT OF CARE 115 MG/DL (70-110)
[2018-10-17 07:15] VITALS: BP 101/42
[2018-10-17 07:27] LABS: ALBUMIN 2.8 g/dL (3.4-5.0); BILIRUBIN,TOTAL 0.5 mg/dL (0.1-1.0); CREATININE 3.81 mg/dL (0.60-1.30); POTASSIUM 3.8 mmol/L (3.5-5.1); TOTAL PROTEIN, SERUM 6.3 g/dL (6.4-8.2)
[2018-10-17] MEDS: VANCOMYCIN HCL 125 MG/2.5 ML SOLUTION ORAL.SYG PO SCH ×2 (08:52→21:37)
[2018-10-17] MEDS: PANTOPRAZOLE SODIUM 40 MG DR TABLET PO SCH (08:53)
[2018-10-17] MEDS: PredniSONE 5 MG TABLET PO SCH (08:53)
[2018-10-17] MEDS: BRIMONIDINE TARTRATE 0.2% 5 ML OPHTHALMIC SOLUTION OU SCH ×2 (08:53→21:37)
[2018-10-17] MEDS: CIPROFLOXACIN HCL 250 MG TABLET PO SCH ×2 (08:53→21:37)
[2018-10-17] MEDS: CHOLECALCIFEROL (VIT D3) 1,000 UNITS TABLET PO SCH (08:53)
[2018-10-17] MEDS: CycloSPORINE,MODIFIED 100 MG CAPSULE PO SCH ×2 (08:54→21:37)
[2018-10-17] MEDS: LevETIRAcetam 500 MG TABLET PO SCH ×2 (08:54→21:37)
[2018-10-17] MEDS: VITAMIN B COMP/VIT C/FOLIC ACID CAPSULE PO SCH (08:54)
[2018-10-17] MEDS: HEPARIN SODIUM,PORCINE 5,000 UNITS/ML VIAL SQ SCH ×2 (08:54→21:37)
[2018-10-17] MEDS: BUMETANIDE 1 MG TABLET PO SCH (08:54)
[2018-10-17] MEDS: ESCITALOPRAM OXALATE 10 MG TABLET PO SCH (08:55)
[2018-10-17 09:00] VITALS: BP 122/72
[2018-10-17] MEDS: INSULIN LISPRO 100 UNITS/ML SQ SCH ×3 (09:06→17:52)
[2018-10-17] MEDS: BACITRACIN 28.4 GM OINTMENT TP SCH (09:08)
[2018-10-17] MEDS: CHLORHEXIDINE GLUCONATE 4% 118 ML TOPICAL LIQUID TP SCH (09:08)
[2018-10-17] MEDS: INSULIN LISPRO 100 UNITS/ML SQ PRN ×3 (12:43→21:50)
[2018-10-17 15:25] VITALS: BP 101/55
[2018-10-17 17:21] LABS: GLUCOMETER DEV NAME(LOC) 2WR.2; GLUCOSE,POINT OF CARE 189 MG/DL (70-110)
[2018-10-17 20:36] LABS: GLUCOMETER DEV NAME(LOC) 2WR.2; GLUCOSE,POINT OF CARE 199 MG/DL (70-110)
[2018-10-17] MEDS: LORazepam 0.5 MG TABLET PO SCH (21:37)
[2018-10-17] MEDS: LATANOPROST 0.005% 2.5 ML OPHTHALMIC SOLUTION OU SCH (21:37)
[2018-10-17] MEDS: ROSUVASTATIN CALCIUM 10 MG TABLET PO SCH (21:37)
[2018-10-17] MEDS: TAMSULOSIN HCL 0.4 MG CAPSULE PO SCH (21:37)
[2018-10-17] MEDS: INSULIN GLARGINE,HUM.REC.ANLOG 100 UNITS/ML SQ SCH (21:40)
[2018-10-18 03:20] VITALS: BP 151/69
[2018-10-18] MEDS: HYDROCODONE/ACETAMINOPHEN 5-325 MG TABLET PO PRN ×2 (06:20→11:29)
[2018-10-18 06:32] LABS: GLUCOMETER DEV NAME(LOC) 2WR.2; GLUCOSE,POINT OF CARE 153 MG/DL (70-110)
[2018-10-18 07:20] VITALS: BP 140/86
[2018-10-18] MEDS: BRIMONIDINE TARTRATE 0.2% 5 ML OPHTHALMIC SOLUTION OU SCH (09:52)
[2018-10-18] MEDS: ESCITALOPRAM OXALATE 10 MG TABLET PO SCH (09:53)
[2018-10-18] MEDS: CycloSPORINE,MODIFIED 100 MG CAPSULE PO SCH (09:55)
[2018-10-18] MEDS: CHOLECALCIFEROL (VIT D3) 1,000 UNITS TABLET PO SCH (09:55)
[2018-10-18] MEDS: PredniSONE 5 MG TABLET PO SCH (09:55)
[2018-10-18] MEDS: BUMETANIDE 1 MG TABLET PO SCH (09:56)
[2018-10-18] MEDS: LevETIRAcetam 500 MG TABLET PO SCH (09:56)
[2018-10-18] MEDS: PANTOPRAZOLE SODIUM 40 MG DR TABLET PO SCH (09:57)
[2018-10-18] MEDS: VITAMIN B COMP/VIT C/FOLIC ACID CAPSULE PO SCH (09:57)
[2018-10-18] MEDS: HEPARIN SODIUM,PORCINE 5,000 UNITS/ML VIAL SQ SCH (09:57)
[2018-10-18] MEDS: CIPROFLOXACIN HCL 250 MG TABLET PO SCH (09:58)
[2018-10-18] MEDS: VANCOMYCIN HCL 125 MG/2.5 ML SOLUTION ORAL.SYG PO SCH (10:00)
[2018-10-18] MEDS: INSULIN LISPRO 100 UNITS/ML SQ PRN (10:05)
[2018-10-18] MEDS: INSULIN LISPRO 100 UNITS/ML SQ SCH ×2 (10:05→11:30)
[2018-10-18] MEDS ORDERED: SODIUM CHLORIDE 0.9% IRRIG BTL 1,000 ML IRRIG ONE (11:09)
[2018-10-18] MEDS: BACITRACIN 28.4 GM OINTMENT TP SCH (11:30)
[2018-10-18] MEDS: CHLORHEXIDINE GLUCONATE 4% 118 ML TOPICAL LIQUID TP SCH (11:30)
[2018-10-18 17:17] LABS: GLUCOMETER DEV NAME(LOC) 2WR.1B; GLUCOSE,POINT OF CARE 115 MG/DL (70-110)
[2018-10-22 00:06] LABS: CYCLOSPORINE A 198 ng/mL (100-400)
== END 2018-10-18 14:30 | disposition home or self-care (01) | DRG 299 ==
LOC: 2WR 14:47
PROVIDERS: ADMIT Physical Medicine & Rehabilitation; ATTEND Physical Medicine & Rehabilitation
DX: E11.52 Type 2 diabetes mellitus with diabetic peripheral angiopathy with gangrene (principal); N18.6 End stage renal disease; I50.23 Acute on chronic systolic (congestive) heart failure; I13.2 Hypertensive heart and chronic kidney disease with heart failure and with stage 5 chronic kidney disease, or end stage renal disease; J98.11 Atelectasis; N39.0 Urinary tract infection, site not specified; Z94.0 Kidney transplant status; E87.1 Hypo-osmolality and hyponatremia; F33.1 Major depressive disorder, recurrent, moderate; T86.19 Other complication of kidney transplant; I31.3 Pericardial effusion (noninflammatory); E11.40 Type 2 diabetes mellitus with diabetic neuropathy, unspecified; E11.22 Type 2 diabetes mellitus with diabetic chronic kidney disease; D63.8 Anemia in other chronic diseases classified elsewhere; E78.5 Hyperlipidemia, unspecified; F41.9 Anxiety disorder, unspecified; I08.0 Rheumatic disorders of both mitral and aortic valves; I50.9 Heart failure, unspecified; R09.02 Hypoxemia; Z79.899 Other long term (current) drug therapy; Z82.49 Family history of ischemic heart disease and other diseases of the circulatory system; Z83.3 Family history of diabetes mellitus; Z89.511 Acquired absence of right leg below knee; Z99.2 Dependence on renal dialysis; F41.1 Generalized anxiety disorder; F43.20 Adjustment disorder, unspecified; F60.7 Dependent personality disorder; Z89.512 Acquired absence of left leg below knee; Z79.4 Long term (current) use of insulin; Z87.440 Personal history of urinary (tract) infections; Y83.0 Surgical operation with transplant of whole organ as the cause of abnormal reaction of the patient, or of later complication, without mention of misadventure at the time of the procedure; M81.0 Age-related osteoporosis without current pathological fracture; I25.2 Old myocardial infarction; K29.70 Gastritis, unspecified, without bleeding; L89.90 Pressure ulcer of unspecified site, unspecified stage
CPT/HCPCS: 80158; 82570; 83735; 84100; 84156; 87081; 87086; 93971; 97110; 97162; 97167; 97530; 97535; 99366; J1644; J1815; J7502; J7515; Q0162